=== PATIENT | female | born 1960 | race Two or more races ===

== ENCOUNTER 2020-07-01 12:05 | Emergency (ER) | payer MEDICAID, OTHER ==
[~2020-07-01] VITALS: Ht 154.9 cm; Wt 59.0 kg
[2020-07-01 12:24] VITALS: BP 145/77
[2020-07-01] MEDS ORDERED: TETANUS-DIPTH-ACEL PERTUSSIS 0.5ML SYR Tdap IM ONE (14:00)
== END 2020-07-01 14:09 | disposition home or self-care (01) ==
LOC: ER 12:05
DX: S41.111A Laceration without foreign body of right upper arm, initial encounter (principal); W26.0XXA Contact with knife, initial encounter; Y93.89 Activity, other specified; Y92.89 Other specified places as the place of occurrence of the external cause; Y99.8 Other external cause status
CPT/HCPCS: 12002; 90471; 90715

== ENCOUNTER 2025-06-04 11:41 | Emergency (ER) | payer BC, MEDICAID ==
[~2025-06-04] VITALS: Ht 157.5 cm; Wt 60.0 kg
[2025-06-04 13:22] VITALS: BP 128/84; PULSE 67; RESP 14; TEMP 98.2; O2SAT 95
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
--- NOTE | 2025-06-04 14:30 | DVH ---
EXAM: XY R HAND 3 VIEW XRAY CLINICAL INDICATION: INJURY TO RIGHT THUMB 2 WEEKS AGO TECHNIQUE: XY R HAND 3 VIEW XRAY Comparison: None FINDINGS/IMPRESSION: There is no evidence of acute fracture or dislocation. Diffuse soft tissue swelling. The alignment is anatomical. There is no radiopaque foreign body.
== END 2025-06-04 16:17 | disposition home or self-care (01) ==
LOC: ER 11:41
DX: S60.111A Contusion of right thumb with damage to nail, initial encounter (principal); Z48.00 Encounter for change or removal of nonsurgical wound dressing; W18.39XA Other fall on same level, initial encounter; Y93.66 Activity, soccer; Y92.89 Other specified places as the place of occurrence of the external cause; Y99.8 Other external cause status
CPT/HCPCS: 73130